=== PATIENT | female | born 1980 | race Caucasian/White ===

== ENCOUNTER 2024-10-15 09:45 | Emergency (ER) | payer MEDICAID, SELFPAY ==
[2024-10-15 09:47] VITALS: BP 144/95; PULSE 94; RESP 16; TEMP 36.4; O2SAT 99; BMI 33.0
--- NOTE | 2024-10-15 10:51 | EDS_ITS ---
HPI History of Present Illness Chief Complaint: Back Onset/Context/Timing Onset: Today Context: Gradual Onset Timing: Continuous Quality: Aching and Burning Location: Lumbar and Buttock Worsened by: improves with Movement, Ambulation and - (Standing) Relieved by: Remaining Still Associated Symptoms Associated Symptoms: Negative for Numbness, Tingling, Radiation to Right Leg, Radiation to Left Leg, Fever, Abdominal Pain, Dysuria, Unable to Ambulate, Unable to Transfer, Urinary Retention, Urinary Incontinence, Constipation or Fecal Incontinence Narrative Narrative: Patient presents with back pain that became worse today. Patient states she feels like she is having a flareup of her Lyme disease. Patient states she was given prescriptions for doxycycline and prednisone but she has not picked them up from the pharmacy yet. Patient states she called her primary care physician who told her to come to the emergency department. Patient states her pain is constant. Patient describes it as aching and burning. Patient states it is worse with movement and standing. Patient states it is better with rest. Patient states her pain is mainly over her lower lumbar area and bilateral hips. Patient denies any trauma or injury. [facility] Medical History (Updated 10/15/24 @ 12:[address] David Olmedo DO) Lyme arthritis Allergy/AdvReac Type Severity Reaction Status Date / Time bee venom protein (honey Allergy Intermediate Swelling Verified 10/15/24 09:50 bee) (bees) latex Allergy Intermediate Rash Verified 10/15/24 09:50 Sulfa (Sulfonamide Allergy Intermediate Rash Verified 10/15/24 09:46 Antibiotics) Surgical History (Updated 10/15/24 @ 10:[address] David Olmedo DO) Hx of tubal ligation Social History Smoking Status: Smoker, status unknown ROS ROS ED Constitutional Constitutional ED: Denies chills or fever(s) Eyes Eyes: Denies blurry vision or change in vision ENT ENT ED: Denies rhinorrhea or sore throat Cardiovascular Cardiovascular: Denies chest pain or palpitations Respiratory/Chest Respiratory/Chest: Denies cough or dyspnea Gastrointestinal Gastrointestinal: Denies nausea or vomiting Genitourinary Genitourinary ED: Denies dysuria or hematuria Musculoskeletal Musculoskeletal: Reports arthralgias and neck pain; Denies back pain Integumentary Denies abscess or rash Neurologic Neurologic: Reports headache(s); Denies weakness Allergic/Immunologic Allergic/Immunologic ED: Denies mouth swelling or urticaria EXAM Physical Exam Const Vital Signs: 10/15/24 09:47 Temperature 97.5 F L Temperature Source Temporal Pulse Rate 94 Respiratory Rate 16 Blood Pressure 144/95 H Blood Pressure Mean 111 Pulse Ox 99 Oxygen Delivery Method Room Air Positive well nourished and well developed General Appearance ED: well developed and NAD HEENT Reports moist mucous membranes Neck supple and no JVD Back/Spine Back/Spine Narrative: There is tenderness over the lower lumbar spine and paraspinal muscles. There is no bony crepitance or step-off. There is no deformity noted. Range of motion was limited in all motions of the lumbar spine secondary to pain. Straight leg raises were negative bilaterally. Strength is 5/5 bilaterally in the lower extremities. There are no sensory deficits noted. Deep tendon reflexes are 2/4 bilaterally in the lower extremities. Extremity normal to inspection and no clubbing, cyanosis or edema General Extremety ED: Negative for edema General Extremity: Negative for edema Neuro oriented x3 and no sensory deficits noted Sensorium / Orientation: alert Motor Exam: strength 5/5 throughout Deep Tendon Reflexes: Rt Patellar (L4): 2+, Lt Patellar (L4): 2+, Rt Ankle (S1): 2+ and Lt Ankle (S1): 2+ Deep Tendon Reflexes Back: Rt Patellar (L4): 2+, Lt Patellar (L4): 2+, Rt Ankle (S1): 2+ and Lt Ankle (S1): 2+ Psych mental status grossly normal MDM MDM MDM Narrative Medical decision making narrative: Differential diagnosis includes lumbosacral strain, degenerative arthritis, spondylolisthesis, and occult fracture. X-rays of the lumbar spine will be obtained to assess for degenerative arthritis, spondylolisthesis, and occult fracture. Radiography X-Ray: LS SPine, Read by ED Physician, Read by Radiologist, Normal, No Fracture and Normal Bony Alignment Diagnostic Testing: Clinical Impression(s) from Imaging Studies Lumbar Spine X-Ray 10/15/24 11:15 IMPRESSION: Normal x-ray examination of the lumbar spine. Electronically Signed: Austin Cunningham MD at 11:29 EST , X-rays of the lumbar spine were obtained. There are 3 views. On my independent interpretation, there is no acute fracture or spondylolisthesis. Radiologist also interpreted the x-rays and agrees. Treatment and Re-Evaluation Narrative: Patient was given injection of morphine here. Patient was advised of her findings. Patient was instructed to get her prescriptions filled and take those as prescribed. Patient was instructed to use ice to her back. Patient was instructed to follow-up with her primary care physician in 5 to 7 days. Patient was given a note for work. Patient understood and was agreeable with the plan. All questions were answered. Discharge Plan Triage Chief Complaint: Back ED Provider: David Olmedo Dx/Rx/DC Orders Clinical Impression: Acute low back pain, Body mass index (BMI) of 30 to 39 in adult Instructions: ED Back Pain (Acute or Chronic) Stand Alone Forms: Work Status Form Primary Care Provider: Suzy Sawant Referrals: Suzy Sawant, [employer] INFORMATION CLERK-C [Primary Care Provider] - 5-7 Days Print Language: Nigerian Disposition Disposition: Home, Self Care
[2024-10-15] MEDS: Morphine 4 MG/ML Syringe IM (11:11)
--- NOTE | 2024-10-15 11:15 | RAD_ITS ---
STUDY: X-RAY - LUMBAR SPINE REASON FOR EXAM: Female, 44 years old. Injury/Pain TECHNIQUE: 3 view(s) of the lumbar spine were obtained. COMPARISON: None FINDINGS: Normal lumbar lordosis. There is no substantial scoliosis. There is a normal alignment of the vertebrae. Normal vertebral bodies and endplates. Normal disc space heights. There is no demonstrated fracture. The soft tissue structures are unremarkable. RAD/Lumbar Spine 2 or 3 Views IMPRESSION: Normal x-ray examination of the lumbar spine. Electronically Signed: Austin Cunningham MD at 11:29 EST ,
[2024-10-15 12:09] VITALS: BP 139/68; PULSE 72; RESP 16; TEMP 36.6; O2SAT 99
== END 2024-10-15 12:10 | disposition home or self-care (01) ==
PROVIDERS: Emergency Provider Emergency Medicine; PCP Nurse Practitioner Family; Visit Provider Emergency Medicine
DX: M54.50 Low back pain, unspecified (principal); F17.200 Nicotine dependence, unspecified, uncomplicated; A69.20 Lyme disease, unspecified; R51.9 Headache, unspecified
CPT/HCPCS: 72100; 96372; 99282